=== PATIENT | female | born 1985 | race Caucasian/White ===

== ENCOUNTER 2018-03-04 10:25 | Inpatient (IN) | payer MEDICAID ==
[2018-03-04] MEDS ORDERED: IBUPROFEN 600 MG TAB PO (12:00)
[2018-03-04] MEDS ORDERED: MISOPROSTOL 200 MCG TAB PR (12:00)
[2018-03-04] MEDS ORDERED: OXYTOCIN 30 UNITS/LR 500 ML IV (12:00)
[2018-03-04] MEDS ORDERED: CARBOPROST 250 MCG INJ IM (12:00)
[2018-03-04] MEDS ORDERED: METHYLERGONOVINE 0.2 MG INJ IM (12:00)
[2018-03-04] MEDS: LACTATED RINGER'S 1,000 ML IV* ×2 (12:49→19:29)
[2018-03-04] MEDS: OXYTOCIN 30 UNITS/LR 500 ML IV (13:26)
[2018-03-04 13:35] LABS: ADD MAN DIFF? NO
[2018-03-04 13:38] LABS: BASOPHILS % 0.3 % (0.0-2.0); EOSINOPHILS # 0.1 10^3/ul (0.0-0.5); EOSINOPHILS % 0.9 % (0.0-7.0); HEMATOCRIT 32.1 % (37.0-47.0); HEMOGLOBIN 10.2 g/dl (12.0-16.0); LYMPHOCYTES # 1.2 10^3/ul (0.8-2.9); LYMPHOCYTES % 14.5 % (15.0-51.0); MEAN CORPUSCULAR HEMOGLOBIN 24.8 pg (29.0-33.0); MEAN CORPUSCULAR HGB CONC 31.8 g/dl (32.0-37.0); MEAN CORPUSCULAR VOLUME 77.9 fl (82.0-101.0); MEAN PLATELET VOLUME 12.1 fl (7.4-10.4); MONOCYTE # 0.4 10^3/ul (0.3-0.9); MONOCYTES % 5.2 % (0.0-11.0); NEUTROPHIL # 6.2 10^3/ul (1.6-7.5); NEUTROPHILS % 78.3 % (39.0-77.0); PLATELET COUNT 196 10^3/UL (140-415); RED BLOOD COUNT 4.12 10^6/ul (4.20-5.40); RED CELL DISTRIBUTION WIDTH 14.6 % (11.5-14.5)
[2018-03-04 13:58] LABS: INR 0.89; PROTIME 12.1 Sec (11.9-14.9); PT RATIO 0.9
[2018-03-04 14:22] LABS: PARTIAL THROMBOPLASTIN TIME 31.1 Sec (25.0-35.0)
[2018-03-04 15:06] LABS: RAPID PLASMA REAGIN NONREACTIVE (NR)
[2018-03-04] MEDS: BUTORPHANOL 2 MG INJ IV ×2 (15:34→19:09)
[2018-03-05] MEDS: LIDOCAINE 1% (MPF) 30 ML INJ INJ (02:25)
[2018-03-05] MEDS: MINERAL OIL LIGHT 10 ML VIAL TOP (02:25)
[2018-03-05] MEDS: OXYTOCIN 30 UNITS/LR 500 ML IV ×3 (02:28→06:37)
[2018-03-05] MEDS: HYDROCODONE/APAP (5/325) TAB PO (02:49)
[2018-03-05] MEDS: LACTATED RINGER'S 1,000 ML IV* ×3 (05:12→21:12)
[2018-03-05] MEDS: DEXTROSE 5%-LR 1,000 ML IV ×3 (05:12→21:12)
[2018-03-05] MEDS ORDERED: ZOLPIDEM 5 MG TAB PO (05:30)
[2018-03-05] MEDS ORDERED: METHYLERGONOVINE 0.2 MG INJ IM (05:30)
[2018-03-05] MEDS ORDERED: ONDANSETRON 4 MG INJ IV (05:30)
[2018-03-05] MEDS ORDERED: MISOPROSTOL 200 MCG TAB PR (05:30)
[2018-03-05] MEDS ORDERED: OXYCODONE/ASPIRIN (4.88/325) TAB PO (05:30)
[2018-03-05] MEDS ORDERED: DIPHENHYDRAMINE 50 MG INJ IV (05:30)
[2018-03-05] MEDS ORDERED: CARBOPROST 250 MCG INJ IM (05:30)
[2018-03-05] MEDS ORDERED: SENNA/DOCUSATE NA (8.6MG/50MG) TAB PO (05:30)
[2018-03-05] MEDS ORDERED: ACETAMINOPHEN 325 MG TAB PO (05:30)
[2018-03-05] MEDS: LANOLIN 7 GM TUBE TOP (06:23)
[2018-03-05] MEDS: IBUPROFEN 600 MG TAB PO ×4 (06:23→23:43)
[2018-03-05] MEDS: WITCH HAZEL/GLYCERIN PAD PR (06:23)
[2018-03-05] MEDS: BENZOCAINE 20% 56 ML SPRAY TOP (06:24)
[2018-03-05] MEDS: DIBUCAINE 1% 30 GM OINT PR (23:43)
[2018-03-06] MEDS: DEXTROSE 5%-LR 1,000 ML IV ×3 (05:12→21:35)
[2018-03-06] MEDS: LACTATED RINGER'S 1,000 ML IV* ×3 (05:12→21:35)
[2018-03-06] MEDS: IBUPROFEN 600 MG TAB PO ×3 (05:38→17:46)
[2018-03-06 08:54] LABS: ADD MAN DIFF? NO
[2018-03-06 08:57] LABS: BASOPHILS % 0.3 % (0.0-2.0); EOSINOPHILS # 0.1 10^3/ul (0.0-0.5); EOSINOPHILS % 0.8 % (0.0-7.0); HEMATOCRIT 27.5 % (37.0-47.0); HEMOGLOBIN 8.4 g/dl (12.0-16.0); LYMPHOCYTES # 1.4 10^3/ul (0.8-2.9); MEAN CORPUSCULAR HEMOGLOBIN 23.9 pg (29.0-33.0); MEAN CORPUSCULAR HGB CONC 30.5 g/dl (32.0-37.0); MEAN CORPUSCULAR VOLUME 78.3 fl (82.0-101.0); MEAN PLATELET VOLUME 12.2 fl (7.4-10.4); MONOCYTE # 0.6 10^3/ul (0.3-0.9); MONOCYTES % 5.2 % (0.0-11.0); NEUTROPHIL # 9.3 10^3/ul (1.6-7.5); NEUTROPHILS % 80.6 % (39.0-77.0); PLATELET COUNT 173 10^3/UL (140-415); RED BLOOD COUNT 3.51 10^6/ul (4.20-5.40); RED CELL DISTRIBUTION WIDTH 15.5 % (11.5-14.5)
[2018-03-06 08:57] LABS: WHITE BLOOD COUNT 11.5 10^3/ul (4.8-10.8)
[2018-03-07] MEDS: IBUPROFEN 600 MG TAB PO ×3 (00:08→11:32)
[2018-03-07] MEDS: DEXTROSE 5%-LR 1,000 ML IV (05:12)
[2018-03-07] MEDS: LACTATED RINGER'S 1,000 ML IV* (05:12)
[2018-03-07] MEDS: MEASLES,MUMPS,RUBELLA VACCINE INJ SC* (09:00)
[2018-03-07] MEDS: DIPHTH/TET/ACEL PERTUSS (ADULT) 0.5 ML VIAL IM* (11:32)
== END 2018-03-07 13:40 | disposition home or self-care (01) | DRG 775 ==
LOC: OBT 10:25 → PP1 03-05 04:26 → L-D 10:25 → OBT 11:52 → L-D 11:52
PROVIDERS: Obstetrics & Gynecology
PROC: 10E0XZZ Delivery of Products of Conception, External Approach (ICD-10-PCS; principal; 2018-03-05)
PROC: 0DQR0ZZ Repair Anal Sphincter, Open Approach (ICD-10-PCS; 2018-03-05)
PROC: 0W8NXZZ Division of Female Perineum, External Approach (ICD-10-PCS; 2018-03-05)
PROC: 3E0234Z Introduction of Serum, Toxoid and Vaccine into Muscle, Percutaneous Approach (ICD-10-PCS; 2018-03-07)
DX: O69.1XX0 Labor and delivery complicated by cord around neck, with compression, not applicable or unspecified (principal); O70.20 Third degree perineal laceration during delivery, unspecified; O77.0 Labor and delivery complicated by meconium in amniotic fluid; Z3A.39 39 weeks gestation of pregnancy; Z37.0 Single live birth; Z23 Encounter for immunization
CPT/HCPCS: 76815; 76818; 85025; 85610; 85730; 86592; 86900; 86901; 90715